=== PATIENT | male | born 1965 | race Caucasian/White ===

== ENCOUNTER → 2020-08-29 | Outpatient (CLI) | payer OTHER | LOC: SLEEP-COR 10:25 | DX: G47.33 Obstructive sleep apnea (adult) (pediatric) (principal) | CPT/HCPCS: 95811 ==

== ENCOUNTER → 2020-11-15 | Outpatient (CLI) | payer OTHER | LOC: HEART 5 14:15 | DX: J45.40 Moderate persistent asthma, uncomplicated (principal); F17.210 Nicotine dependence, cigarettes, uncomplicated | CPT/HCPCS: 94060; 95012 ==